=== PATIENT | female | born 1995 | race Asian ===

== ENCOUNTER 2018-02-20 21:45 | Inpatient (IN) | payer OTHER ==
[~2018-02-20] VITALS: Ht 165.1 cm; Wt 87.2 kg
[2018-02-20 21:48] VITALS: BP 148/72; PULSE 97; RESP 16; TEMP 97.2; O2SAT 100
[2018-02-20] MEDS ORDERED: ABIL10TA8 PO (22:26)
[2018-02-20] MEDS ORDERED: ADDE30TA PO (22:26)
[2018-02-20] MEDS ORDERED: MULTTAB67 PO (22:26)
[2018-02-20] MEDS ORDERED: NORE1CHW8 PO (22:26)
[2018-02-20] MEDS ORDERED: PROZ20CA11 PO (22:26)
--- NOTE | 2018-02-20 23:49 | PD ---
HPI Chief Complaint: Psychiatric Symptoms Time Seen by Provider: 23:26 Travel History International Travel<30 days: No Contact w/Intl Traveler<30days: No Traveled to known affect area: No History of Present Illness HPI 22-year-old female presents emergency department accompanied by her parents for evaluation of depression with suicidal thoughts. She states that she has been battling depression now for nearly 2 years. She is performed self mutilative activities such as burning herself with hot water, punching or kicking things to bruise herself. She states that she has contemplated hanging herself. She is currently taking 2 antidepressants and Adderall for her ADHD. [place] came [place] She has been home for the past week. She states that she has been feeling increasingly depressed and she had broken down this evening because she states that she cannot handle it any longer. She has once again thought about hurting herself but has no current plan. She is here with her parents due to her increasing suicidal ideation. No homicidal ideation. No toxic ingestions. No medical complaints. She denies any self mutilative activity. Last period 3 weeks ago. She denies alcohol, drugs or tobacco. Symptoms are severe. No alleviating factors. Exacerbated by social issues. PFSH Past Medical History Narrative Medical ADHD, anxiety, depression ADHD: Yes Anxiety: Yes Depression: Yes Tetanus Vaccination: < 5 Years ?: Not Past Surgical History Surgical History: No Previous Surgery Social History Alcohol Use: No Tobacco Use: No Substance Use: No Allergies-Medications (Allergen,Severity, Reaction): Coded Allergies: No Known Allergies (Unverified , 02/20/18) Reported Meds & Prescriptions Reported Meds & Active Scripts Active Reported Norethindrone-Ethinyl Estradiol 0.4-35 Mg-Mcg Chew 1 Tab PO DAILY Multiple Vitamin 1 Tab 1 Tab PO DAILY Adderall (Amphetamine-Dextroamphetamine) 30 Mg Tab 30 Mg PO DAILY Avoid late evening doses. Space doses at least 4 to 6 hours if more than once/day dosing. Prozac (Fluoxetine HCl) 20 Mg Cap 20 Mg PO DAILY Abilify (Aripiprazole) 10 Mg Tab 10 Mg PO DAILY Review of Systems General / Constitutional: No: Fever Eyes: No: Visual changes HENT: No: Headaches Cardiovascular: No: Chest Pain or Discomfort Respiratory: No: Shortness of Breath Gastrointestinal: No: Abdominal Pain Genitourinary: No: Dysuria Musculoskeletal: No: Pain Skin: No Rash Neurologic: No: Weakness Psychiatric: Positive: Depression, Suicidal Ideations, Mood Disorder, No: Anxiety, Disorder of Thought, Substance Abuse, Homicidal Ideation Endocrine: No: Polydipsia Hematologic/Lymphatic: No: Easy Bruising Physical Exam Narrative GENERAL: Well-nourished, well-developed patient. SKIN: Warm and dry. HEAD: Normocephalic and atraumatic. EYES: No scleral icterus. No injection or drainage. ENT: No nasal drainage noted. Mucous membranes pink. Airway patent. NECK: Supple, trachea midline. Moves head freely without obvious discomfort. CARDIOVASCULAR: Regular rate and rhythm without murmurs, gallops, or rubs. RESPIRATORY: Breath sounds equal bilaterally. No accessory muscle use. GASTROINTESTINAL: Abdomen soft, non-tender, nondistended. EXTREMITIES: No cyanosis or edema. BACK: Nontender without obvious deformity. No CVA tenderness. NEURO: Patient is alert and oriented. no sensorimotor deficits. Nonfocal. Normal speech. PSYCH: No delusions. No auditory or visual hallucinations. Data Data Last Documented VS Vital Signs Date Time Temp Pulse Resp B/P (MAP) Pulse Ox O2 Delivery O2 Flow Rate FiO2 02/20/18 21:48 97.2 97 16 148/72 (97) 100 Orders Orders Psych Screen (02/20/18 23:33) Complete Blood Count With Diff (02/20/18 23:45) Comprehensive Metabolic Panel (02/20/18 23:45) Thyroid Stimulating Hormone (02/20/18 23:45) Ed Urine Pregnancytest Poc (02/20/18 23:45) Drug Screen, Random Urine (02/20/18 23:45) Alcohol (Ethanol) (02/20/18 23:45) Salicylates (Aspirin) (02/20/18 23:45) Tylenol (Acetaminophen) (02/20/18 23:45) Labs Laboratory Tests Test 02/20/18 23:46 White Blood Count 6.7 TH/MM3 Red Blood Count 4.99 MIL/MM3 Hemoglobin 14.9 GM/DL Hematocrit 43.7 % Mean Corpuscular Volume 87.6 FL Mean Corpuscular Hemoglobin 29.8 PG Mean Corpuscular Hemoglobin Concent 34.1 % Red Cell Distribution Width 12.8 % Platelet Count 285 TH/MM3 Mean Platelet Volume 8.3 FL Neutrophils (%) (Auto) 63.6 % Lymphocytes (%) (Auto) 29.8 % Monocytes (%) (Auto) 5.0 % Eosinophils (%) (Auto) 1.1 % Basophils (%) (Auto) 0.5 % Neutrophils # (Auto) 4.3 TH/MM3 Lymphocytes # (Auto) 2.0 TH/MM3 Monocytes # (Auto) 0.3 TH/MM3 Eosinophils # (Auto) 0.1 TH/MM3 Basophils # (Auto) 0.0 TH/MM3 CBC Comment DIFF FINAL Differential Comment Total Protein 8.3 GM/DL Alkaline Phosphatase 69 U/L Alanine Aminotransferase (ALT/SGPT) 35 U/L Total Bilirubin 0.3 MG/DL Thyroid Stimulating Hormone 3rd Gen 2.810 uIU/ML MDM Medical Decision Making Medical Screen Exam Complete: Yes Emergency Medical Condition: Yes Medical Record Reviewed: Yes Interpretation(s) Laboratory Tests Test 02/20/18 23:46 White Blood Count 6.7 TH/MM3 Red Blood Count 4.99 MIL/MM3 Hemoglobin 14.9 GM/DL Hematocrit 43.7 % Mean Corpuscular Volume 87.6 FL Mean Corpuscular Hemoglobin 29.8 PG Mean Corpuscular Hemoglobin Concent 34.1 % Red Cell Distribution Width 12.8 % Platelet Count 285 TH/MM3 Mean Platelet Volume 8.3 FL Neutrophils (%) (Auto) 63.6 % Lymphocytes (%) (Auto) 29.8 % Monocytes (%) (Auto) 5.0 % Eosinophils (%) (Auto) 1.1 % Basophils (%) (Auto) 0.5 % Neutrophils # (Auto) 4.3 TH/MM3 Lymphocytes # (Auto) 2.0 TH/MM3 Monocytes # (Auto) 0.3 TH/MM3 Eosinophils # (Auto) 0.1 TH/MM3 Basophils # (Auto) 0.0 TH/MM3 CBC Comment DIFF FINAL Differential Comment Total Protein 8.3 GM/DL Alkaline Phosphatase 69 U/L Alanine Aminotransferase (ALT/SGPT) 35 U/L Total Bilirubin 0.3 MG/DL Thyroid Stimulating Hormone 3rd Gen 2.810 uIU/ML Differential Diagnosis MDM: High Differential diagnoses: Schizophrenia, schizoaffective disorder, bipolar, anxiety, depression, adjustment reaction, mood disorder NOS, ODD, depressive disorder NOS, dementia, dementia with agitation, psychosis NOS, substance induced mood disorder, DMDD, Asperger syndrome, infection,electrolyte abnormality, malingering. Narrative Course Mental health screening discussed with the patient. Psychiatric screen ordered. The patient has been medically cleared. This is medical clearance for psychiatric admission, depression with SI Diagnosis Primary Impression: Medical clearance for psychiatric admission Additional Impression: Depression with suicidal ideation Condition: Stable Ilir Muniz Feb 20, 2018 23:49
[2018-02-21 00:02] LABS: AUTOMATED NEUTROPHIL # 4.3 TH/MM3 (1.8-7.7); BASOPHIL % 0.5 % (0.0-2.0); EOSINOPHIL # 0.1 TH/MM3 (0-0.4); EOSINOPHIL % 1.1 % (0.0-4.0); HEMATOCRIT 43.7 % (35.0-46.0); HEMOGLOBIN 14.9 GM/DL (11.6-15.3); LYMPH % 29.8 % (9.0-44.0); MEAN CELL VOLUME 87.6 FL (80.0-100.0); MEAN CORPUSCULAR HEMOGLOBIN 29.8 PG (27.0-34.0); MEAN CORPUSCULAR HGB CONC 34.1 % (32.0-36.0); MEAN PLATELET VOLUME 8.3 FL (7.0-11.0); MONOCYTE # 0.3 TH/MM3 (0-0.9); NEUT % 63.6 % (16.0-70.0); PLATELET COUNT 285 TH/MM3 (150-450); RED BLOOD COUNT 4.99 MIL/MM3 (4.00-5.30); RED CELL DISTRIBUTION WIDTH 12.8 % (11.6-17.2); WHITE BLOOD COUNT 6.7 TH/MM3 (4.0-11.0)
[2018-02-21 00:17] LABS: ALT (GPT) 35 U/L (9-42)
[2018-02-21 00:27] LABS: ALKALINE PHOSPHATASE 69 U/L (45-117); TOTAL BILIRUBIN ADULT 0.3 MG/DL (0.2-1.0); TOTAL PROTEIN 8.3 GM/DL (6.4-8.2)
[2018-02-21 00:42] LABS: ALBUMIN 4.4 GM/DL (3.4-5.0); AST (GOT) 19 U/L (16-38); BICARBONATE 26.4 MEQ/L (21.0-32.0); BLOOD UREA NITROGEN 17 MG/DL (7-18); CALCIUM 9.8 MG/DL (8.5-10.1); CHLORIDE 105 MEQ/L (98-107); CREATININE 0.95 MG/DL (0.50-1.00); GLOMERULAR FILTRATION RATE 75 ML/MIN (>89); GLUCOSE,RANDOM 103 MG/DL (74-106); SODIUM (NA) 140 MEQ/L (136-145)
[2018-02-21 00:51] LABS: ACETAMINOPHEN LESS THAN 2.0 MCG/ML (10.0-30.0)
[2018-02-21 01:05] VITALS: BP 169/91; PULSE 94; RESP 17; TEMP 98.2; O2SAT 99
[2018-02-21] MEDS ORDERED: LORazepam 1 MG TAB PO ONE (01:15)
[2018-02-21 06:25] VITALS: BP 164/79; PULSE 92; RESP 18; TEMP 98.6; O2SAT 99
[2018-02-21] MEDS ORDERED: ACETAMINOPHEN 325 MG TAB PO PRN (09:00)
[2018-02-21] MEDS ORDERED: NICOTINE 21 MG/24 HR PATCH T-DERMAL PRN (09:00)
[2018-02-21] MEDS ORDERED: BENZTROPINE MESYLATE 2 MG/2 ML VIAL IM PRN (09:00)
[2018-02-21] MEDS ORDERED: LORazepam 2 MG/ML VIAL IM PRN (09:00)
[2018-02-21] MEDS: ARIPiprazole 10 MG TAB PO SCH (09:00)
[2018-02-21] MEDS ORDERED: LORazepam 1 MG TAB PO PRN (09:00)
[2018-02-21] MEDS ORDERED: NORETHINDRONE ETHINYL ESTRADIOL PO SCH (09:00)
[2018-02-21] MEDS ORDERED: BENZTROPINE MESYLATE 1 MG TAB PO PRN (09:00)
[2018-02-21] MEDS: DEXTROAMPHETAMINE/AMPHETAMINE 10 MG TAB PO SCH ×2 (09:00→17:28)
[2018-02-21] MEDS ORDERED: [UNRECOGNIZED DRUG - OTHER] PO SCH (09:00)
[2018-02-21] MEDS ORDERED: ALUMINUM/MAGNESIUM/SIMETH 30 ML CUP PO PRN (09:00)
[2018-02-21] MEDS ORDERED: MAGNESIUM HYDROXIDE SUSP 30 ML CUP PO PRN (09:00)
--- NOTE | 2018-02-21 09:02 | HHI.HP ---
Provisional Diagnosis Admission Date Feb 21, 2018 at 09:00 [place] I. 1. Major depressive disorder, recurrent, moderate 2. History of ADHD [place] II. Deferred Certification of Person's Competence To Provide Express and Informed Consent I have personally examined Sil Moore , a person being served at [facility] on, Feb 21, 2018 09:02. Express and informed consent means consent voluntarily given in writing, by a competent person, after sufficient explanation and disclosure of the subject matter involved to enable the person to make a knowing and willful decision without any element of force, fraud, deceit, duress, or other form of constraint or coercion. This person is 18 years of age or older, is not now known to be incompetent to consent to treatment with a guardian advocate, and does not have a health care surrogate or proxy currently making medical treatment decisions. I have found this person to be one of the following: [x] Competent to provide express and informed consent, as defined above, for voluntary admission to this facility and is competent to provide express and informed consent for treatment. He/she has the consistent capacity to make well reasoned, willful, and knowing decisions concerning his or her medical or mental health treatment. The person fully and consistently understands the purpose of the admission for examination/placement and is fully capable of personally exercising all rights assured [place] Incompetent to provide express and informed consent to voluntary admission, and this is incompetent to provide express and informed consent to treatment. The person must be transferred to involuntary status and a petition for a guardian advocate filed with the Circuit Court. [] Refusing to provide express and informed consent to voluntary admission but is competent to provide express and informed consent for treatment. The person must be discharged or transferred to involuntary status. Form shall be completed within 24 hours of a person's arrival at the receiving facility and filed in the clinical record of each person: 1. Admitted on a voluntary basis 2. Permitted to provide express and informed consent to his/her own treatment 3. Allowed to transfer from involuntary to voluntary status 4. Prior to permitting a person to consent to his or her own treatment after having been previously found incompetent to consent to treatment. History of Present Illness Capacity: Has Capacity Psych Chief Complaint: Depression, urge to self injure HPI Ms. Moore is a 22-year-old female with a reported history of depression and ADHD who presents voluntarily for psychiatric evaluation. Reviewing the electronic medical record, I note that this is patient's first visit to [facility]. Patient seen and examined. Chart reviewed. Case discussed with nurse and the [facility]. On my examination today, the patient reports that she presented to the ED because of a depressive episode that began evening. She says that she has been feeling increasingly depressed even though she "went through all the steps of self-care" that she has learned in the past. In addition to low mood the patient endorses hopeless feelings, sleep and appetite disturbance as well as low energy and poor concentration. She endorses comorbid anxious distress. She says that historically she will have precipitous worsening of her moods and knows that this is a reason to seek urgent psychiatric attention. She denies any audiovisual hallucinations presently. She says that in the past she has had auditory hallucinations "inside my head that is not me" as well as "visions of killing myself." The last time that she had these was 3 months ago. She does endorse some mild paranoia presently. No other delusional material. No hypomanic or manic symptoms. She does endorse urge to self injure namely by kicking gomez with her shins "to punish myself." No reported urge to hurt herself on the inpatient unit. Remainder of psychiatric ROS is negative. No acute physical complaints. Past psychiatric history: Patient reports a history of depression and ADHD. She follows with an outpatient psychiatrist in [place], last saw provider 2-3 weeks ago. She denies any history of psychiatric admissions. Denies any history of suicide attempts. Denies any history of nonsuicidal self-injurious behavior. Patient reports that she takes Prozac 20 mg daily as well as Abilify 10 mg daily and Adderall 15 mg morning and afternoon. She does note that the provider has tried a higher dose of Abilify in the past but this has made her feel "hazy" and so the provider lowered the dose back to 10 mg. Family history: Patient is adopted and knows nothing of her family history. Chemical dependency history: Patient denies any abuse of drugs or alcohol. Social history: The patient is in [place] for summer break. She attends the [employer]. She is presently looking for work. She is single with no children. Denies any history. Denies any legal history. Denies any access to guns or firearms. She is a [employer]. She denies any history of trauma. Review of Systems Except as stated in HPI: all other systems reviewed are Neg Past Family Social History Coded Allergies: No Known Allergies (Unverified , 02/20/18) Past Medical History Patient denies any past medical history. She denies any allergies to any medications. Reported Medications Norethindrone-Ethinyl Estradiol (Norethindrone-Ethinyl Estradiol) 0.4-35 Mg-Mcg Chew, 1 TAB PO DAILY, #1 PACK 0 Refills 02/20/18 Multiple Vitamin (Multiple Vitamin) 1 Tab, 1 TAB PO DAILY for Nutritional Supplement, TAB 0 Refills 02/20/18 Aripiprazole (Abilify) 10 Mg Tab, 10 MG PO DAILY, #30 TAB 0 Refills 02/20/18 Discontinued Reported Medications Amphetamine-Dextroamphetamine (Adderall) 30 Mg Tab, 30 MG PO DAILY for Hyperactivity Control, #30 TAB 0 Refills Avoid late evening doses. Space doses at least 4 to 6 hours if more than once/day dosing. 02/20/18 Fluoxetine (Prozac) 20 Mg Cap, 20 MG PO DAILY, #30 CAP 0 Refills 02/20/18 Current Medications Medications (Trade) Dose Ordered Sig/Christiano Route Start Time Stop Time Status Last Admin (Abilify) 10 mg DAILY PO 02/21/18 09:00 UNV Non-Formulary Medication 1 tab DAILY PO 02/21/18 09:00 UNV Non-Formulary Medication 1 tab DAILY PO 02/21/18 09:00 UNV (PROzac) 40 mg DAILY PO 02/21/18 09:00 UNV (Adderall) 10 mg DAILY@0900,1500 PO 02/21/18 09:00 UNV (Ativan) 0.5 mg Q6H PRN PO 02/21/18 09:00 UNV (Ativan Inj) 0.5 mg Q6H PRN IM 02/21/18 09:00 UNV (Benadryl) 50 mg HS PRN PO 02/21/18 09:00 UNV (Tylenol) 650 mg Q4H PRN PO 02/21/18 09:00 UNV (Milk Of Magnesia Liq) 30 ml DAILY PRN PO 02/21/18 09:00 UNV (Mag-Al Plus Susp Liq) 30 ml Q6H PRN PO 02/21/18 09:00 UNV (Habitrol 21 Mg Patch.24 Hr) 1 patch DAILY PRN T-DERMAL 02/21/18 09:00 UNV (Cogentin) 1 mg Q12H PRN PO 02/21/18 09:00 UNV (Cogentin Inj) 1 mg Q12H PRN IM 02/21/18 09:00 UNV Patient's Strengths (min. 2) In a monitored setting. Verbally fluent. Physical Exam Physical exam completed by ED provider. On my examination today, the patient appears to be in no acute physical distress. No motor abnormalities noted. Labs and vitals reviewed: Vital Signs Vital Signs Date Time Temp Pulse Resp B/P (MAP) Pulse Ox O2 Delivery O2 Flow Rate FiO2 02/21/18 06:25 98.6 92 18 164/79 (107) 99 Room Air Lab Results Test 02/20/18 23:46 02/21/18 01:00 White Blood Count 6.7 TH/MM3 Red Blood Count 4.99 MIL/MM3 Hemoglobin 14.9 GM/DL Hematocrit 43.7 % Mean Corpuscular Volume 87.6 FL Mean Corpuscular Hemoglobin 29.8 PG Mean Corpuscular Hemoglobin Concent 34.1 % Red Cell Distribution Width 12.8 % Platelet Count 285 TH/MM3 Mean Platelet Volume 8.3 FL Neutrophils (%) (Auto) 63.6 % Lymphocytes (%) (Auto) 29.8 % Monocytes (%) (Auto) 5.0 % Eosinophils (%) (Auto) 1.1 % Basophils (%) (Auto) 0.5 % Neutrophils # (Auto) 4.3 TH/MM3 Lymphocytes # (Auto) 2.0 TH/MM3 Monocytes # (Auto) 0.3 TH/MM3 Eosinophils # (Auto) 0.1 TH/MM3 Basophils # (Auto) 0.0 TH/MM3 CBC Comment DIFF FINAL Differential Comment Blood Urea Nitrogen 17 MG/DL Creatinine 0.95 MG/DL Random Glucose 103 MG/DL Total Protein 8.3 GM/DL Albumin 4.4 GM/DL Calcium Level 9.8 MG/DL Alkaline Phosphatase 69 U/L Aspartate Amino Transf (AST/SGOT) 19 U/L Alanine Aminotransferase (ALT/SGPT) 35 U/L Total Bilirubin 0.3 MG/DL Sodium Level 140 MEQ/L Potassium Level 3.9 MEQ/L Chloride Level 105 MEQ/L Carbon Dioxide Level 26.4 MEQ/L Anion Gap 9 MEQ/L Estimat Glomerular Filtration Rate 75 ML/MIN Thyroid Stimulating Hormone 3rd Gen 2.810 uIU/ML Salicylates Level LESS THAN 1.7 MG/DL Acetaminophen Level LESS THAN 2.0 MCG/ML Ethyl Alcohol Level LESS THAN 3 MG/DL Urine Opiates Screen NEG Urine Barbiturates Screen NEG Urine Amphetamines Screen NEG Urine Benzodiazepines Screen NEG Urine Cocaine Screen NEG Urine Cannabinoids Screen NEG ED point of care test negative. Mental Status Examination Appearance: Appropriate Consciousness: Alert Orientation: x4 Motor Activity: Other (No motor abnormalities noted) Speech: Unremarkable Language: Adequate Fund of Knowledge: Adequate Attention and Concentration: Easily Distracted Memory: Unremarkable (Grossly intact on clinical exam) Mood: Other (Depressed) Affect: Appropriate Thought Process & Associations: Intact, Logical, Goal directed, Linear Thought Content: Appropriate Hallucination Type: None Delusion Type: Paranoid (Subjective, mild) Suicidal Ideation: No (But see urge to self injure in a nonsuicidal fashion detailed above) Suicidal Plan: No Suicidal Intention: No Homicidal Ideation: No Homicidal Plan: No Homicidal Intention: No Insight: Adequate Judgment: Adequate Assessment & Plan Problem List: (1) Major depressive disorder, recurrent, moderate ICD Codes: F33.1 - Major depressive disorder, recurrent, moderate Assessment & Plan 22-year-old female with psychiatric history as detailed above who presents voluntarily for psychiatric evaluation. She reports relatively recent onset of multiple depressive symptoms along with urge to self injure in a nonsuicidal fashion. She reports that historically she has had precipitous worsening of her mood and knows that this is an indicator to seek urgent psychiatric attention. She also reports some mild paranoia. We discussed pharmacologic adjustments to treat her current symptoms, namely titration of her antidepressant to try to improve mood and tapering of her stimulant to see if this will lessen paranoia. Patient requires psychiatric hospitalization at this time for safety, observation and stabilization. Admit inpatient. Voluntary status. Titrate Prozac to 40 mg daily. Taper Adderall to 10 mg morning and afternoon. Nurse to confirm stimulant dosing with outpatient pharmacy. Continue Abilify as ordered. Low-dose Ativan as needed for anxiety, Cogentin as needed for EPS, Benadryl as needed for sleep. Follow-up laboratories in the morning. EKG for QTC. Vitals every shift. Counselor to see. Disposition planning. Estimated length of stay: 5-7 days. Discharge Planning Pending psychiatric stabilization Request HC Surrog/Guard Advoc?: No Nazario Morris MD Feb 21, 2018 09:02
[2018-02-21] MEDS: MULTIVITAMIN TAB PO SCH (10:11)
[2018-02-21] MEDS: FLUoxetine HCL 20 MG CAP PO SCH (10:12)
[2018-02-21 10:45] VITALS: BP 104/73; PULSE 102; RESP 17; TEMP 97.3; O2SAT 97
[2018-02-21 18:13] VITALS: BP 132/76; PULSE 93; RESP 18; TEMP 98.3; O2SAT 97
[2018-02-21] MEDS ORDERED: REMOVE OLD NICODERM (NICOTINE) PATCH T-DERMAL PRN (21:00)
[2018-02-21] MEDS ORDERED: diphenhydrAMINE HCL 50 MG CAP PO PRN (21:00)
[2018-02-22 06:00] VITALS: BP 109/60; PULSE 90; RESP 16; TEMP 98.1; O2SAT 98
[2018-02-22] MEDS: MULTIVITAMIN TAB PO SCH (08:41)
[2018-02-22] MEDS: FLUoxetine HCL 20 MG CAP PO SCH (08:41)
[2018-02-22] MEDS: ARIPiprazole 10 MG TAB PO SCH (08:41)
[2018-02-22] MEDS: DEXTROAMPHETAMINE/AMPHETAMINE 10 MG TAB PO SCH ×2 (08:41→15:22)
[2018-02-22 09:15] LABS: BLOOD UREA NITROGEN 13 MG/DL (7-18); CALCIUM 9.4 MG/DL (8.5-10.1); CHLORIDE 107 MEQ/L (98-107); CREATININE 0.93 MG/DL (0.50-1.00); GLOMERULAR FILTRATION RATE 77 ML/MIN (>89); GLUCOSE,RANDOM 145 MG/DL (74-106); SODIUM (NA) 141 MEQ/L (136-145)
[2018-02-22 09:16] LABS: TRIGLYCERIDES 98 MG/DL (42-150)
[2018-02-22 09:22] LABS: CHOLESTEROL 157 MG/DL (120-200); CHOLESTEROL/ HDL RATIO 2.39 RATIO; HDL CHOLESTEROL 65.5 MG/DL (40.0-60.0); LDL CHOLESTEROL 72 MG/DL (0-99)
[2018-02-22 10:14] LABS: HEMOGLOBIN A1C 5.6 % (4.3-6.0)
--- NOTE | 2018-02-22 14:01 | HHI.PYPN ---
Subjective Chief Complaint: Depression, urge to self injure Remarks Pt seen and discussed with staff. She is compliant with medications and denies side effects. She denies SI/HI today. She denies AVH. She reports that mood is better today as AH have resolved with Abilify. She reports that she currently has a therapist in [place] where she attends college but does not have an outpatient psychiatrist. Mental Status Examination Appearance: Appropriate Consciousness: Alert Orientation: x4 Motor Activity: Other (No motor abnormalities noted) Speech: Unremarkable Language: Adequate Fund of Knowledge: Adequate Attention and Concentration: Easily Distracted Memory: Unremarkable (Grossly intact on clinical exam) Mood: Other (Depressed) Affect: Appropriate Thought Process & Associations: Intact, Logical, Goal directed, Linear Thought Content: Appropriate Hallucination Type: None Delusion Type: Paranoid (mild) Suicidal Ideation: No Suicidal Plan: No Suicidal Intention: No Homicidal Ideation: No Homicidal Plan: No Homicidal Intention: No Insight: Adequate Judgment: Adequate Results Labs Test 02/22/18 08:10 Blood Urea Nitrogen 13 MG/DL Creatinine 0.93 MG/DL Random Glucose 145 MG/DL Calcium Level 9.4 MG/DL Sodium Level 141 MEQ/L Potassium Level 3.9 MEQ/L Chloride Level 107 MEQ/L Carbon Dioxide Level 23.0 MEQ/L Anion Gap 11 MEQ/L Estimat Glomerular Filtration Rate 77 ML/MIN Hemoglobin A1c 5.6 % Triglycerides Level 98 MG/DL Cholesterol Level 157 MG/DL LDL Cholesterol 72 MG/DL HDL Cholesterol 65.5 MG/DL Cholesterol/HDL Ratio 2.39 RATIO Vitals/IOs Vital Signs Date Time Temp Pulse Resp B/P (MAP) Pulse Ox O2 Delivery O2 Flow Rate FiO2 02/22/18 06:00 98.1 90 16 109/60 (76) 98 02/21/18 06:25 Room Air Assessment & Plan Problem List: (1) Major depressive disorder, recurrent, moderate ICD Codes: F33.1 - Major depressive disorder, recurrent, moderate Status: Acute Assessment & Plan Continue current tx plan. Estimated LOS: days Justification for Cont. Inpt. risk of decompensation Request HC Surrog/Guard Advoc?: No Светлана Barbour MD Feb 22, 2018 14:01
--- NOTE | 2018-02-22 14:25 | EKG ---
Date Performed: 02/22/2018 Time Performed: 10:45:01 PTAGE: 22 years EKG: Sinus rhythm NORMAL ECG NO PREVIOUS TRACING DOCTOR: Hair Patterson Interpretating Date/Time 02/22/2018 14:24:01
[2018-02-22 19:45] VITALS: BP 130/86; PULSE 89; RESP 18; TEMP 98; O2SAT 99
[2018-02-23 06:00] VITALS: BP 117/58; PULSE 68; RESP 16; TEMP 98.1; O2SAT 98
[2018-02-23] MEDS ORDERED: FLUO20CA12 PO (08:56)
[2018-02-23] MEDS ORDERED: ADDE10 PO (08:56)
--- NOTE | 2018-02-23 08:56 | HHI.DS ---
Psychiatry Discharge Summary Inpatient Psychiatric care?: Yes Advance Directive: No Reason Not Provided: DOES NOT HAVE Mental Health AdvanceDirective: No Health Care Proxy: No Admission Admission Date Feb 21, 2018 at 09:00 Admission Diagnosis: (1) Major depressive disorder, recurrent, moderate ICD Code: F33.1 - Major depressive disorder, recurrent, moderate Brief History Ms. Moore is a 22-year-old female with a reported history of depression and ADHD who presents voluntarily for psychiatric evaluation. Reviewing the electronic medical record, I note that this is patient's first visit to [place]. Patient seen and examined. Chart reviewed. Case discussed with nurse and the [facility]. On my examination today, the patient reports that she presented to the ED because of a depressive episode that began evening. She says that she has been feeling increasingly depressed even though she "went through all the steps of self-care" that she has learned in the past. In addition to low mood the patient endorses hopeless feelings, sleep and appetite disturbance as well as low energy and poor concentration. She endorses comorbid anxious distress. She says that historically she will have precipitous worsening of her moods and knows that this is a reason to seek urgent psychiatric attention. She denies any audiovisual hallucinations presently. She says that in the past she has had auditory hallucinations "inside my head that is not me" as well as "visions of killing myself." The last time that she had these was 3 months ago. She does endorse some mild paranoia presently. No other delusional material. No hypomanic or manic symptoms. She does endorse urge to self injure namely by kicking gomez with her shins "to punish myself." No reported urge to hurt herself on the inpatient unit. Remainder of psychiatric ROS is negative. No acute physical complaints. Past psychiatric history: Patient reports a history of depression and ADHD. She follows with an outpatient psychiatrist in [place], last saw provider 2-3 weeks ago. She denies any history of psychiatric admissions. Denies any history of suicide attempts. Denies any history of nonsuicidal self-injurious behavior. Patient reports that she takes Prozac 20 mg daily as well as Abilify 10 mg daily and Adderall 15 mg morning and afternoon. She does note that the provider has tried a higher dose of Abilify in the past but this has made her feel "hazy" and so the provider lowered the dose back to 10 mg. Family history: Patient is adopted and knows nothing of her family history. Chemical dependency history: Patient denies any abuse of drugs or alcohol. Social history: The patient is in [place] for summer. She attends the [employer] and [employer]. She is presently looking for work. She is single with no children. Denies any history. Denies any legal history. Denies any access to guns or firearms. She is a Christianity. She denies any history of trauma. Tobacco Use In Past 30 Days: No Tobacco Past 30 Days Alcohol Use: Monthly or Less Hospital Course Patient was admitted to a locked, inpatient psychiatric unit. Appropriate precautions were in place throughout patient's hospital stay. Patient was seen and examined on the unit by psychiatry and also visited by counselor. Psychotropic medications were adjusted. Patient tolerated medication changes well without side effects. Patient had improvement in presenting psychiatric symptomatology during the course of her hospital stay. There was no evidence of any suicidality or homicidality on the inpatient unit. There was no evidence of self-care deficit. The patient remained in good behavioral control and was medication compliant. On the day of discharge: Patient seen and examined with nurse. Chart reviewed. Case discussed with nursing staff. Patient reported to be pleasant, compliant and attending groups. On my examination today, the patient reports that she is doing well and requests discharge from the inpatient psychiatric unit today. She denies any suicidal or homicidal ideation, intent or plan and contracts for safety. She denies any urge to self injure. I can elicit no depressive or hypomanic/manic symptoms. She does complain of somewhat poor sleep, but this is reported to be related chiefly to unfamiliar environment. She denies any audiovisual hallucinations. I can elicit no delusional material, and in particular I can elicit no ongoing paranoia. She denies any side effects from medications. She has no physical complaints. With the patient's permission, I have obtained collateral information from her mother Kiera Moore at [phone] on the day of discharge. Ms. Moore notes the patient seems to be improved versus admission and is comfortable receiving the patient home today. I have recommended that mother secure the home of all potential means of harm to self or others including but not limited to guns, knives and medications (including medications prescribed the patient on discharge today). I have counseled mother on mechanisms in place to have the patient brought back for further psychiatric evaluation should the need arise including voluntary psychiatric evaluation, Stone act and ex parte. Suicide and violence risk assessment on day of discharge both suggest lower imminent risk from mental illness, and the patient's level of function is adequate for outpatient care. Patient has maximized benefit from this inpatient psychiatric hospital stay and will be discharged today with psychiatric follow-up as arranged by counselor. Patient is also to follow up with primary care. I have counseled the patient to abstain from any substances of abuse. I have counseled the patient regarding warning signs for need to return to the psychiatric emergency room as part of a general safety plan. Results Blood Pressure 117 / 58 Vital Signs Date Time Temp Pulse Resp B/P (MAP) Pulse Ox O2 Delivery O2 Flow Rate FiO2 02/23/18 06:00 98.1 68 16 117/58 (77) 98 02/21/18 06:25 Room Air Laboratory Tests Test 02/20/18 23:46 02/21/18 01:00 02/22/18 08:10 Total Protein 8.3 GM/DL (6.4-8.2) Estimat Glomerular Filtration Rate 75 ML/MIN (>89) 77 ML/MIN (>89) Salicylates Level LESS THAN 1.7 MG/DL Acetaminophen Level LESS THAN 2.0 MCG/ML Random Glucose 145 MG/DL (74-106) HDL Cholesterol 65.5 MG/DL (40.0-60.0) Laboratory Results Test 02/22/18 08:10 Cholesterol Level 157 MG/DL (120-200) HDL Cholesterol 65.5 MG/DL (40.0-60.0) Hemoglobin A1c 5.6 % (4.3-6.0) LDL Cholesterol 72 MG/DL (0-99) Triglycerides Level 98 MG/DL (42-150) Summary of Procedures None done Imaging None done Pending results at discharge: No Medications # of Antipsychotic meds at D/C: 1 Approp Antipsych med options 1 - Minimum of three failed multiple trials of monotherapy. 2 - Documented plan to taper to monotherapy due to previous use of multiple meds OR cross-taper in progress at D/C. 3 - Documentation of augmentation of Clozapine. 4 - Justification other than those listed in allowable values 1-3, document here : Discharge Discharge Date: Feb 23, 2018 Discharge Diagnosis: (1) Major depressive disorder, recurrent, in remission, unspecified Diagnosis: Principal ICD Code: F33.40 - Major depressive disorder, recurrent, in remission, unspecified Pt Condition on Discharge: Stable Discharge Disposition: Discharge Home Discharge Instructions Diet Instructions: As Tolerated, No Restrictions Activities you can perform: Weight Bearing as Sumit Scheduled Appointment: As per counselors notes New Orders: BASIC METABOLIC PROF - 1 Week New Medications: Amphetamine-Dextroamphetamine (Adderall) 10 Mg Tab 10 MG PO DAILY@0900,1500 for Mental Health for 7 Days, TAB 0 Refills Avoid late evening doses. Space doses at least 4 to 6 hours if more than once/day dosing. Fluoxetine (Fluoxetine) 20 Mg Capsule 40 MG PO DAILY for Mental Health for 30 Days, #60 CAP 0 Refills Continued Medications: Aripiprazole (Abilify) 10 Mg Tab 10 MG PO DAILY, #30 TAB 0 Refills Multiple Vitamin (Multiple Vitamin) 1 Tab 1 TAB PO DAILY for Nutritional Supplement, TAB 0 Refills Norethindrone-Ethinyl Estradiol (Norethindrone-Ethinyl Estradiol) 0.4-35 Mg-Mcg Chew 1 TAB PO DAILY, #1 PACK 0 Refills Discharge Time > 30 minutes Mental Status Examination Appearance: Appropriate Consciousness: Alert Orientation: x4 Motor Activity: Normal gait, Other (No abnormal motor movements noted) Speech: Unremarkable Language: Adequate Fund of Knowledge: Adequate Attention and Concentration: Easily Distracted Memory: Unremarkable (Remains grossly intact on clinical exam) Mood: Appropriate Affect: Appropriate, Euthymic Thought Process & Associations: Intact, Logical, Goal directed, Linear Thought Content: Appropriate Hallucination Type: None Delusion Type: None Suicidal Ideation: No Suicidal Plan: No Suicidal Intention: No Homicidal Ideation: No Homicidal Plan: No Homicidal Intention: No Insight: Adequate Judgment: Adequate Discharge/Advance Care Plan Health Problems: (1) Major depressive disorder, recurrent, moderate Goals to promote your health * To prevent worsening of your condition and complications * To maintain your health at the optimal level Directions to meet your goals Take your medications as prescribed Follow your dietary instruction Follow activity as directed Keep your appointments as scheduled Take your immunizations and boosters as scheduled If your symptoms worsen call your PCP, if no PCP go to Urgent Care Center or Emergency Room For 07/04 questions related to your inpatient stay or results of tests pending at discharge, please contact Dr. Nazario Morris at Smoking is Dangerous to Your Health. Avoid second hand smoking Nazario Morris MD Feb 23, 2018 08:56
[2018-02-23] MEDS: FLUoxetine HCL 20 MG CAP PO SCH (09:00)
[2018-02-23] MEDS: MULTIVITAMIN TAB PO SCH (09:00)
[2018-02-23] MEDS: ARIPiprazole 10 MG TAB PO SCH (09:00)
[2018-02-23] MEDS: DEXTROAMPHETAMINE/AMPHETAMINE 10 MG TAB PO SCH (09:21)
== END 2018-02-23 14:45 | disposition home or self-care (01) | DRG 885 ==
LOC: NEPD 21:45 → NEDA 02-21 09:00 → H260 02-21 10:40
PROVIDERS: ADMIT Psychiatry & Neurology Psychiatry; ATTEND Psychiatry & Neurology Psychiatry
DX: F33.1 Major depressive disorder, recurrent, moderate (principal); F22 Delusional disorders; R45.851 Suicidal ideations; F41.9 Anxiety disorder, unspecified; F90.9 Attention-deficit hyperactivity disorder, unspecified type; Z91.5 Personal history of self-harm
CPT/HCPCS: 80048; 80053; 80061; 80307; 83036; 84443; 84703; 85025; 93005; 99285; Q0163